=== PATIENT | female | born 1990 | race Caucasian/White ===

== ENCOUNTER → 2023-03-29 | Outpatient (CLI) | payer MEDICAID, SELFPAY ==
[2023-03-29 12:16] LABS: Hematocrit 44.1 % (37-47); Mean Corp Hgb Conc 31.7 g/dL (32-36); Mean Corpuscular Hgb 28.2 pg (27.0-32.0); Mean Corpuscular Volume 88.9 fL (81-99); Mean Platelet Vol. 11.5 fl (6.2-12.0); Platelet Count 234 K/mm3 (150-450); RBC Distribution Width CV 11.6 % (11.6-14.6); RBC Distribution Width SD 36.8 fl (35.1-43.9); Red Blood Count 4.96 M/mm3 (4.2-5.4); White Blood Count 6.6 K/mm3 (4.4-11.0)
[2023-03-29 12:55] LABS: AST(SGOT) 19 U/L (15-37); Alanine Aminotransfer ALT/SGPT 24 U/L (13-56); Albumin, Serum 4.2 g/dL (3.2-5.0); Alkaline Phosphatase 44 U/L (45-117); Anion Gap 7 (5-15); BUN 12 mg/dL (7-18); BUN/Creat Ratio 21.2 RATIO (10-20); Calcium,Total 9.3 mg/dL (8.5-10.1); Chloride 105 mmol/L (98-107); Creatinine, Serum 0.57 mg/dL (0.55-1.02); EST Glomerular Filtration Rate 131 mL/min (>60); Est Glom Filt Rate - Afr Amer 158 mL/min (>60); Globulin 4.2 g/dL (2.2-4.2); Glucose 91 mg/dL (74-106); Potassium 3.9 mmol/L (3.5-5.1); Protein, Total 8.4 g/dL (6.4-8.2); Sodium Level 138 mmol/L (136-145)
[2023-03-30 14:08] LABS: Vitamin D 1,25-Dihydroxy 56.2 pg/mL (24.8-81.5)
[2023-03-31 15:08] LABS: Trileptal-Oxcarbazepine 23 ug/mL (10-35)
== END | disposition home or self-care (01) ==
LOC: MTLAB 10:14
PROVIDERS: PCP Family Medicine; Referring Provider Psychiatry & Neurology Neurology; Visit Provider Psychiatry & Neurology Neurology
DX: N20.0 Calculus of kidney (principal)
CPT/HCPCS: 36415; 80053; 82542; 82652; 85027

== ENCOUNTER → 2023-04-16 | Outpatient (CLI) | payer MEDICAID, SELFPAY ==
--- NOTE | 2023-04-16 13:41 | ECHOD_ITS ---
Reason For Study: PRESYNCOPE Procedure This was a 2D Doppler, Color Flow transthoracic echocardiogram. Technically difficult study due to patients severe congitive disability and unable to cooperate long enough for a full study. Exam performed in department. Left Ventricle Normal size and thickness. The left ventricular ejection fraction is 60 %. Right Ventricle Normal right ventricle. Atria The left and right atria are normal. Mitral Valve Trivial mitral valve insufficiency. Tricuspid Valve Normal tricuspid valve. Aortic Valve The aortic valve is not well visualized in the short axis view. Pulmonic Valve The pulmonic valve is not well visualized. Great Vessels The aortic root is not well visualized. Pericardium/Pleural Trivial pericardial effusion. MMode/2D Measurements & Calculations LVIDd: 3.7 cm IVSd: 0.52 cm LAV(MOD-sp4): 17.5 ml LVIDs: 2.7 cm LVPWd: 0.72 cm FS: 26.8 % LA A4 area: 8.7 cm2 LA dimension(2D): 2.1 cm RA A4 area: 7.7 cm2 TAPSE: 1.7 cm Doppler Measurements & Calculations MV E max vic: 81.4 cm/sec Lat Peak E' Vic: 9.6 cm/sec Med Peak E' Vic: 12.4 cm/sec MV A max vic: 48.1 cm/sec E/E' lat: 8.5 E/E' med: 6.6 MV E/A: 1.7 MV V2 max: 97.4 cm/sec MV P1/2t max vic: 84.3 cm/sec Ao V2 max: 103.0 cm/sec MV max P.8 mmHg MV P1/2t: 60.0 msec Ao max P.2 mmHg MV V2 mean: 66.8 cm/sec Ao V2 mean: 68.9 cm/sec MV mean P.0 mmHg MV dec slope: 411.4 cm/sec2 Ao mean P.2 mmHg MV V2 VTI: 28.8 cm MVA(P1/2t): 3.7 cm2 Ao V2 VTI: 19.6 cm AV (velocity ratio): 1.2 LV V1 max: 109.3 cm/sec LV V1 max P.8 mmHg LV V1 mean P.5 mmHg LV V1 mean: 73.6 cm/sec LV V1 VTI: 22.8 cm ECHO/Echo Complete Interpretation Summary Technically difficult study. The left ventricular ejection fraction is 60 %. Trivial pericardial effusion. Ordering Physician: Brodie Culver Referring Physician: Brodie Culver Performed By: Magnolia Reyes RCS
== END | disposition home or self-care (01) ==
LOC: CVS 13:40
PROVIDERS: PCP Family Medicine; Referring Provider Psychiatry & Neurology Neurology; Visit Provider Psychiatry & Neurology Neurology
DX: R55 Syncope and collapse (principal); R01.1 Cardiac murmur, unspecified
CPT/HCPCS: 93306

== ENCOUNTER → 2023-10-29 | Outpatient (CLI) | payer MEDICAID, SELFPAY ==
[2023-10-29 09:40] LABS: Hematocrit 43.1 % (37-47); Hemoglobin 14.1 g/dL (12.0-15.0); Mean Corp Hgb Conc 32.7 g/dL (32-36); Mean Corpuscular Hgb 28.4 pg (27.0-32.0); Mean Corpuscular Volume 86.9 fL (81-99); Mean Platelet Vol. 10.7 fl (6.2-12.0); Platelet Count 236 K/mm3 (150-450); RBC Distribution Width CV 11.7 % (11.6-14.6); Red Blood Count 4.96 M/mm3 (4.2-5.4); White Blood Count 9.9 K/mm3 (4.4-11.0)
[2023-10-29 13:05] LABS: ALB/GLOB Ratio 1.1 RATIO (0.9-2.4); AST(SGOT) 21 U/L (15-37); Alanine Aminotransfer ALT/SGPT 18 U/L (13-56); Albumin, Serum 4.2 g/dL (3.2-5.0); Alkaline Phosphatase 44 U/L (45-117); Anion Gap 7 (5-15); BUN 8 mg/dL (7-18); BUN/Creat Ratio 12.3 RATIO (10-20); Calcium,Total 9.5 mg/dL (8.5-10.1); Chloride 105 mmol/L (98-107); Creatinine, Serum 0.65 mg/dL (0.55-1.02); EST Glomerular Filtration Rate 111 mL/min (>60); Est Glom Filt Rate - Afr Amer 134 mL/min (>60); Globulin 3.7 g/dL (2.2-4.2); Glucose 101 mg/dL (74-106); Protein, Total 7.9 g/dL (6.4-8.2); Sodium Level 138 mmol/L (136-145)
[2023-11-03 01:07] LABS: Trileptal-Oxcarbazepine 17 ug/mL (10-35)
== END | disposition home or self-care (01) ==
LOC: PSN 09:02
PROVIDERS: Referring Provider Psychiatry & Neurology Neurology; Visit Provider Psychiatry & Neurology Neurology
DX: R55 Syncope and collapse (principal); G40.909 Epilepsy, unspecified, not intractable, without status epilepticus
CPT/HCPCS: 36415; 80053; 82542; 85027; 93005

== ENCOUNTER → 2025-02-05 | Outpatient (CLI) | payer MEDICAID, SELFPAY ==
[2025-02-05 17:50] LABS: Hematocrit 41.2 % (37-47); Hemoglobin 13.5 g/dL (12.0-15.0); Immature Granulocytes Count 0.010 X10^3/uL (0.0-0.0); Mean Corp Hgb Conc 32.8 g/dL (32-36); Mean Corpuscular Volume 88.0 fL (81-99); Mean Platelet Vol. 12.7 fl (6.2-12.0); NRBC Flagged by Analyzer 0 % (0-5); Platelet Count 169 K/mm3 (150-450); RBC Distribution Width CV 11.5 % (11.6-14.6); RBC Distribution Width SD 36.8 fl (35.1-43.9); Red Blood Count 4.68 M/mm3 (4.2-5.4); White Blood Count 7.6 K/mm3 (4.4-11.0)
[2025-02-05 18:23] LABS: AST(SGOT) 24 U/L (<=31); Alanine Aminotransfer ALT/SGPT 14 U/L (<=34); Albumin, Serum 4.5 g/dL (3.5-5.0); Alkaline Phosphatase 38 U/L (35-104); Anion Gap 12 (5-15); BUN 16 mg/dL (4-19); BUN/Creat Ratio 26.3 RATIO (10-20); Calcium,Total 9.4 mg/dL (7.6-11.0); Carbon Dioxide 22.4 mmol/L (21.0-32.0); Chloride 104 mmol/L (98-108); Globulin 3.0 g/dL (2.2-4.2); Glucose 101 mg/dL (70-99); Potassium 4.7 mmol/L (3.3-5.1)
--- OUTSIDE RECORDS SUMMARY | 2025-02-05 23:22 | XMS RPT_ITS | CCD ---
Author Organization [facility] Care Team Providers Care Tour Consultant Name Role Phone Ge Mathewmut J Unavailable Unavailab le BaehrenCamden F Unavailable Unavailable Baehren, Camden F Unavailable Unavailable Jungschaffer, Ta J Unavailable Unavailab le Ivanauskas, Saulius Unavailable Unavailable Ivanauskas, Saulius Unavailable Unavailable Jungschaffer, Ta J Unavailable Unavailab le Ivanauskas, Saulius Unavailable Unavailable Ivanauskas, Saulius Unavailable Unavailable Jungschaffer, Ta J Unavailable Unavailab le Ivanauskas, Saulius Unavailable Unavailable Ivanauskas, Saulius Unavailable Unavailable No, Physician Unavailable Unavailable Brodie Ralph Unavailable Unavailable Brodie Ralph Unavailable Unavailable BadBrodie solorio Unavailable Unavailable Baddoarabella, Brodie Falcon Unavailable Unavailable Abiola, Brodie J Unavailable Unavailable Abiola, Brodie J Unavailable Unavailable Olya Johnson Primary Care Provider [phone] No, Physician Primary Care Provider UnavailBRODIE Bravo Admitting Unavaila ble NO, PHYSICIAN Primary Care Unavailable Olya Johnson MD Primary Care Provider Olya Johnson MD Primary Care Provider [phone] OLYA JOHNSON Referring Unavailable OLYA JOHNSON Primary Care Unavailable OLYA JOHNSON Referring Unavailable OLYA JOHNSON Primary Care Unavailable OLYA JOHNSON Referring Unavailable ALEX OLYA K Primary Care Unavailable OLYA JOHNSON Primary Care Unavailable SHAHAB ROMERO Referring Unavailable Olya Johnson MD Primary Care Provider [phone] Dr. Brodie Ralph Attending Provider Dr. Olya Johnson Primary Care Provider Dr. Olya Johnson Referring Provider Dr. Matthias Gil Attending Provider Brodie Ralph Attending Unavailable Olya Johnson Referring Unavailable Olya Johnson Primary Care Unavailable Olya Johnson Primary Care Unavailable Brodie Ralph Attending Unavailable Olya Johnson Referring Unavailable Dr. Olya Johnson Primary Care Provider Dr. Brodie Ralph MD Attending Provider [phone] Dr. Brodie Ralph MD Referring Provider Dr. Olya Johnson Referring Provider Allergies Allergy Classification Reported Allergen(s) Allergy Type Date of Onset Reaction(s) Facility (12 sources) PHENobarbital; Translations: [PHENobarbital] Drug Allergy 07-06-2011 [facility] Repository (3 sources) Haloperidol Drug Allergy 04-01-2023 Other [facility] (1 source) Haloperidol Drug Allergy 04-17-2024 [facility] Repository Medications Current Medications Medication Drug Class(es) Dates Sig (Normalized) Sig (Original) ergocalciferol 1.25 mg oral capsule (6 sources) Provitamin D2 Compound Start: 05-13-2019 take 1 capsule by mouth every week vitamin D (ERGOCALCIFEROL) 1.25 MG (32295 UT) CAPS capsule TAKE 1 CAPSULE BY MOUTH weekly 0 05/13/2019 Active Incontinence Supply Disposable MISC (6 sources) Start: 02-11-2022 Incontinence Supply Disposable MISC Indications: Urinary incontinence, unspecified type 1 each by Does not apply route 6 times daily by Does not apply route. 200 each 11 02/11/2022 Active Start: 05-04-2013 Incontinence S upply Disposable MISC by Does not apply route. 200 each 05/04/2013 Active levoFLOXacin 750 mg oral tablet (1 source) Quinolone Antimicrobial Start: 07-18-2019 End: 07-23-2019 take 1 tablet by mouth once daily levofloxacin (LEVAQUIN) 750 MG tablet Take 1 tablet by mouth daily for 5 days 5 tablet 0 07/18/2019 07/23/2019 Active loratadine 10 mg oral tablet (6 sources) Start: 11-01-2012 take 1 tablet by mouth once daily loratadine (CLARITIN) 10 MG tablet Indications: Allergic rhinoconjunctivitis Take 1 tablet by mouth daily. 30 tablet 2 11/01/2012 Active ondansetron 4 mg oral tablet (4 sources) Serotonin-3 Receptor Antagonist Start: 06-24-2022 ondansetron (ZOFRAN) 4 MG tablet Indications: Nausea Take 1 tablet by mouth every 6-8 hours as needed for Nausea or Vomiting 30 tablet 0 06/24/2022 Active OXcarbazepine 300 mg oral tablet (20 sources) Anti-epileptic Agent Start: 06-25-2022 End: 02-05-2025 take 1 tablet by mouth once daily in the evening Oxcarbazepine 300 mg tablet Active 300 mg PO EVERY EVENING 30 February 05, 2025 2:47pm Start: 05-13-2019 End: 02-05-2025 take 1 tablet by mouth twice daily Oxcarbazepine 600 mg tablet Active 600 mg PO TWICE A DAY 60 February 05, 2025 2:47pm traZODone hydrochloride 50 mg oral tablet (6 sources) Serotonin Reuptake Inhibitor Start: 08-16-2023 End: 02-05-2025 Trazodone 50 mg tablet Active 25 mg PO AT BEDTIME as needed for insomnia 15 February 05, 2025 2:47pm Start: 04-01-2023 End: 08-16-2023 take 1 tablet by mouth at bedtime Trazodone 50 mg tablet Discontinued 50 mg PO AT BEDTIME 30 April 01, 2023 12:00am August 16, 2023 4:50pm Problems Active Problems Problem Classification Problem Date Documented Da te Episodic/Chronic Developmental disorders (14 sources) Profound intellectual disability; Translations: [Profound intellectual disabilities] Onset: 07-03-2011 07-03-2011 Chronic Epilepsy; convulsions (4 sources) Epilepsy; Translations: [Epilepsy, unspecified, not intractable, without status epilepticus] 06-25-2022 Chronic Epilepsy; convulsions (6 sources) Seizure; Translations: [Unspecified convulsions] 07-06-2011 Episodic Heart valve disorders (4 sources) Heart murmur; Translations: [Cardiac murmur, unspecified] 04-01-2023 Episodic Other acquired deformities (1 source) Acquired deformity of right foot; Translations: [Unspecified acquired deformity of right lower leg] Episodic Other acquired deformities (3 sources) Unspecified acquired deformity of right lower leg; Translations: [Unspecified acquired deformity of right lower leg] Onset: 09-22-2022 Episodic Other congenital anomalies (1 source) Other specified congenital deformities of hip; Translations: [Other specified congenital deformities of hip] Onset: 11-02-2022 Chronic Other injuries and conditions due to external causes (1 source) Contusion; Translations: [Other injury of unspecified body region, initial encounter] Episodic Other non-traumatic joint disorders (1 source) Pain in right hip joint; Translations: [Pain in right hip] Episodic Other non-traumatic joint disorders (3 sources) Pain in right hip; Translations: [Pain in right hip] Onset: 09-22-2022 Episodic Other nutritional; endocrine; and metabolic disorders (3 sources) History of nutritional deficiency; Translations: [Personal history of other endocrine, nutritional and metabolic disease] 06-25-2022 Episodic Other nutritional; endocrine; and metabolic disorders (1 source) Personal history of other endocrine, nutritional and metabolic disease; Translations: [Personal history of nutritional deficiency] 04-01-2023 Episodic Paralysis (4 sources) Cerebral palsy; Translations: [Cerebral palsy, unspecified] 06-25-2022 Chronic Residual codes; unclassified (2 sources) Insomnia; Translations: [Insomnia, unspecified] 04-01-2023 Episodic Residual codes; unclassified (1 source) Insomnia, unspecified; Translations: [Insomnia, unspecified] 04-01-2023 Episodic Syncope (5 sources) Near syncope; Translations: [Syncope and collapse] 04-01-2023 Episodic Unclassified (2 sources) Intellectual disability; Translations: [Intellectual disability] 11-28-2018 Past or Other Problems Problem Classification Problem Date Documented Da te Episodic/Chronic Allergic reactions (6 sources) Eczema; Translations: [Dermatitis, unspecified] Onset: 04-09-2015 04-09-2015 Episodic Influenza (1 source) Influenza due to Influenza B virus Episodic Results Test Name Value Interpretation Reference Range Facility Neurology Visit Reporton Neurology Visit Report [facility] [address] [place] [address], [address] [place] [address] OFFICE VISIT Date of Service: 04/17/24 MR#: [id number] Acct: [id number] Name: RENEE POTTS Rep #: [id number] : 1990 Provider: Dr. Brodie castellanos MD Age/Sex: 33/F [place] [facility] [place]: Signed [facility] Chief Complaint: Details: Interim History: Renee returns for follow-up visit. She is accompanied by her mother. She has a history of mental retardation, cerebral palsy and epilepsy. She was born full term however had distress around the time of her delivery and required delivery by section. Her mother reported that despite this, her scores were high. She was noted to have developmental motor delay beginning at the age of three months. In infancy and childhood, she had multiple generalized febrile seizures that were associated with recurrent ear infections. Phenobarbital was not well tolerated. Phenytoin was of benefit but was later discontinued. Carbamazepine was of benefit. Around 2003, she apparently had a supratherapeutic carbamazepine level. Her seizure frequency at that time had apparently decreased ranging from once or twice per year to once every two years and decision was made to discontinue carbamazepine. She began to have an increase in her seizure frequency around 2014. She had five seizures between December 2016 in August 2017. She was started on oxcarbazepine in August 2017 and is tolerating this well. Her seizures are characterized as generalized clonic seizures that do not appear to be of focal onset; she has postictal confusion and lethargy. She also has had occasional complex partial seizures manifesting with staring spells. She had a complex partial seizure in August 2019 otherwise has been seizure free since August 2017. Flashing lights are a trigger for her seizures. She is nonverbal. She has marked difficulty following commands. She needs assistance with essentially all of her activities of daily living. At her baseline, she has bowel and bladder incontinence and unsteadiness of gait. In March 2023, she had an episode of diaphoresis and pale appearance. This occurred while standing and she collapsed to the ground but did not lose consciousness. The episode resolved within 30 seconds. This most likely was a presyncopal episode. She has had no further syncopal episodes. She has occasional insomnia. Melatonin was not of benefit. She takes takes trazodone 50 mg 1/2 tablet nightly as needed (trazodone 50 mg caused daytime sedation). Physical Exam: Neuro: the patient is awake; she is markedly bradyphrenic; she produces inarticulate vocalizations Heart: Regular rate and rhythm Supplemental Info Head CT (09/02/17): normal. EEG (09/09/17): abnormal due to presence of 4-5 Hz Dylan and wave discharges seen independently on both temporal areas, sometimes diffusely, which is suggestive of a cortical particular or generalized type of discharge consistent with a primary generalized seizure. There is also slowing of the background, suggesting a mild degree of generalized nonspecific neurophysiological disturbance. No clear ictal activity was seen during the recording. CBC, CMP, TSH, B12, folate, vitamin D level (09/09/17): vitamin D 13 (low), B12 1107, folate >20. Sodium (03/07/18): normal. Oxcarbazepine level (03/07/18): 11 (in therapeutic range). Oxcarbazepine level (09/07/19): 21 (in therapeutic range). CBC, CMP, vitamin D level (09/07/19): glucose 48. CBC, CMP, vitamin D (05/07/21): vitamin D 118 (elevated), glucose 103 CBC, CMP, vitamin D (03/29/2023): BUN/creatinine ratio 21.2 (high) Oxcarbazepine (03/29/2023): 23 (in therapeutic range) Cardiac echo (04/16/2023): Technically difficult study. The left ventricular ejection fraction is 60 %. Trivial pericardial effusion. CBC, CMP (10/29/2023): Unremarkable. Oxcarbazepine level (10/29/2023): 17 (in therapeutic range). EKG (10/29/2023): Sinus rhythm with short PA. Nonspecific T wave abnormality. Abnormal EKG. Assessment and Plan Assessment and Plan (1) Epilepsy: Status: Chronic Qualifiers: Epilepsy type: other Intractability: not intractable Status epilepticus: without status epilepticus Qualified Code(s): G40.802 - Other epilepsy, not intractable, without status epilepticus (2) Insomnia: Status: Acute Qualifiers: Insomnia type: unspecified Qualified Code(s): G47.00 - Insomnia, unspecified Orders: Orders Trileptal-Oxcarbazepine 11/20/24 G40.802 - Other epilepsy, not intractable, without status epilepticus CBC W/Diff, Automated 11/20/24 G40.802 - Other epilepsy, not intractable, without status epilepticus Comprehensive Metabolic Profil 11/20/24 G40.802 - Other epilepsy, not intractable, without status epilepticus Medications: Refilled oxcarbazepine 600 mg PO BID 60 tabs 10RF oxcarbazepine 300 mg PO QPM 30 tabs 10RF (more content not included)... Normal [facility] Basophil percentageOrdered B y: Brodie Ralph on 03-29-2023 Bilirubin [Mass/Vol] 0.20 mg/dL 0.20-1.00 [facility] Comment on above: For patients on eltr ombopag therapy, use of Dimension [place] TBIL is not recommended. Chloride [Moles/Vol] 105 mmol/L 98-107 [facility] Glucose [Mass/Vol] 91 mg/dL 74-106 [facility] Potassium [Moles/Vol] 3.9 mmol/L 3.5-5.1 [facility] Protein [Mass/Vol] 8.4 g/dL 6.4-8.2 [facility] Sodium [Moles/Vol] 138 mmol/L 136-145 [facility] WBC (Bld) [#/Vol] 6.6 10*3/uL 4.4-11.0 [facility] Blood erythrocytes count (nu mber/volume)Ordered By: Brodie Ralph on 03-29-2023 RBC (Bld) [#/Vol] 4.96 10*6/uL 4.2-5.4 [facility] Blood hemoglobin measurement (mass/volume)Ordered By: Brodie Ralph on 03-29-2023 Hemoglobin (Bld) [Mass/Vol] 14.0 g/dL 12.0-15.0 [facility] Blood platelet mean volumeOr dered By: Brodie Ralph on 03-29-2023 Platelet mean volume (Bld) [Entitic vol] 11.5 fL 6.2-12.0 [facility] Determination of erythrocyte mean corpuscular volume (MCV)Ordered By: Brodie Ralph on 03-29-2023 MCV (RBC) [Entitic vol] 88.9 fL 81-99 [facility] Hematocrit Auto (Bld) [Volum e fraction]Ordered By: Brodie Ralph on 03-29-2023 Hematocrit (Bld) [Volume fraction] 44.1 % 37-47 [facility] Laboratory - Chemistry and C hemistry - challengeOrdered By: Brodie Ralph on 03-29-2023 ALP [Catalytic activity/Vol] 44 U/L 45-117 [facility] ALT [Catalytic activity/Vol] 24 U/L 13-56 [facility] CO2 [Moles/Vol] 26.0 mmol/L 21.0-32.0 [facility] Globulin (S) [Mass/Vol] 4.2 g/dL 2.2-4.2 [facility] Urea nitrogen/Creatinine [Mass ratio] 21.2 mg/mg 10-20 [facility] Laboratory - Hematology and Cell countsOrdered By: Brodie Ralph on 03-29-2023 Erythrocyte distribution width (RBC) [Entitic vol] 36.8 fL 35.1-43.9 [facility] Erythrocyte distribution width (RBC) [Ratio] 11.6 % 11.6-14.6 [facility] MCH (RBC) [Entitic mass] 28.2 pg 27.0-32.0 [facility] MCHC Auto (RBC) [Mass/Vol]Or dered By: Brodie Ralph on 03-29-2023 MCHC (RBC) [Mass/Vol] 31.7 g/dL 32-36 [facility] No Panel InformationOrdered By: Brodie Ralph on 03-29-2023 Estimated GFR (MDRD) Amer 158 mL/min >60 [facility] Comment on above: GFR Calc Estimated GFR (MDRD) Non-Af Amer 131 mL/min >60 [facility] Comment on above: Non- GFR Calc Platelets bldOrdered By: Adam Ralph on 03-29-2023 Platelets (Bld) [#/Vol] 234 10*3/uL 150-450 [facility] Serum or plasma albumin sana urement (mass/volume)Ordered By: Brodei Ralph on 03-29-2023 Albumin [Mass/Vol] 4.2 g/dL 3.2-5.0 [facility] Serum or plasma albumin/glob ulin mass ratioOrdered By: Brodie Ralph on 03-29-2023 Albumin/Globulin [Mass ratio] 1.0 {ratio} 0.9-2.4 [facility] Serum or plasma calcitriol m easurement (mass/volume)Ordered By: Brodie Ralph on 03-29-2023 1,25-dihydroxyvitami n D3 [Mass/Vol] 56.2 pg/mL 24.8-81.5 [facility] Comment on above: Performed at: [facility] [address] [id number] Director: Dalia Chandra MD, Phone: [phone] Serum or plasma calcium sana urement (mass/volume)Ordered By: Brodie Ralph on 03-29-2023 Calcium [Mass/Vol] 9.3 mg/dL 8.5-10.1 [facility] Serum or plasma creatinine m easurement (mass/volume)Ordered By: Brodie Ralph on 03-29-2023 Creatinine [Mass/Vol] 0.57 mg/dL 0.55-1.02 [facility] Comment on above: The validity of the calculated GFR & GFRAA in patients over 70 years has not been determined. Clinical correlation is essential. Serum or plasma oxcarbazepin e measurement (mass/volume)Ordered By: Brodie Ralph on 03-29-2023 OXcarbazepine [Mass/Vol] 23 ug/mL 10-35 [facility] Comment on above: This test was develo ped and its performance characteristicsdetermined by [employer]. It has not been cleared orapproved by the Food and Drug Administration. Detection Limit = 1Performed at: [employer] [facility] [address] [id number] Director: Dalia Chandra MD, Phone: [phone] Serum or plasma urea nitroge n measurement (mass/volume)Ordered By: Brodie Ralph on 03-29-2023 Urea nitrogen [Mass/Vol] 12 mg/dL 7-18 [facility] Thin prep Papanicolaou smear with manual screeningOrdered By: Brodie Ralph on 03-29-2023 Thin prep Papanicolaou smear with manual screening 19 U/L 15-37 [facility] Thin prep Papanicolaou smear with manual screening 7 5-15 [facility] CBC panel Auto (Bld)on 02-26 Erythrocyte distribution width (RBC) [Ratio] 11.5 % Low 11.7 - 14.4 % [facility] Hematocrit (Bld) [Volume fraction] 39.7 % 37.0 - 47.0 % [facility] Hemoglobin (Bld) [Mass/Vol] 13.3 g/dL 11.2 - 15.7 g/dL [facility] Interpretation and review of laboratory results Abnormal [facility] MCH (RBC) [Entitic mass] 28.8 pg 25.6 - 32.2 pg [facility] MCHC (RBC) [Mass/Vol] 33.5 % 32.2 - 35.5 % [facility] MCV (RBC) [Entitic vol] 85.9 fL 79.4 - 94.8 fL [facility] Platelets (Bld) [#/Vol] 224 10*3/uL 182 - 369 K/uL [facility] RBC (Bld) [#/Vol] 4.62 10*6/uL [facility] WBC (Bld) [#/Vol] 7.2 10*3/uL 4.0 - 10.0 K/uL [facility] No Panel Informationon 09-22 Radiology Study observation (narrative) [facility] Work Phone: XR FOOT RIGHT (MIN 3 VIEWS)o n 09-22-2022 XR FOOT RIGHT (MIN 3 VIEWS) EXAMINATION: THREE XRAY VIEWS OF THE RIGHT FOOT 09/22/2022 8:59 am COMPARISON: None. HISTORY: ORDERING SYSTEM PROVIDED HISTORY: Acquired foot deformity, right TECHNOLOGIST PROVIDED HISTORY: Is the patient ?->No What reading provider will be dictating this exam?->CRC FINDINGS: There is well-demarcated erosion of the tip of the distal phalanx of the great toe that is nonspecific. No acute fracture or dislocation. Question mild soft tissue edema of the great toe. IMPRESSION: Nonspecific well-demarcated erosion of the tip of the distal phalanx of the great toe. This may be congenital, represent sequela of prior trauma or healed osteomyelitis, or acute osteomyelitis in the appropriate clinical setting. Interpreted by: Deyvi Weeks DO Signed by: Deyvi Weeks DO 09/22/22 Final result Normal [facility] Nonspecific well-dem arcated erosion of the tip of the distal phalanx of the great toe. This may be congenital, represent sequela of prior trauma or healed osteomyelitis, or acute osteomyelitis in the appropriate clinical setting. [facility] RADIOLOGY EXAMINATION: THREE XRAY VIEWS OF THE RIGHT FOOT 09/22/2022 8:59 am COMPARISON: None. HISTORY: ORDERING SYSTEM PROVIDED HISTORY: Acquired foot deformity, right TECHNOLOGIST PROVIDED HISTORY: Is the patient ?->No What reading provider will be dictating this exam?->CRC FINDINGS: There is well-demarcated erosion of the tip of the distal phalanx of the great toe that is nonspecific. No acute fracture or dislocation. Question mild soft tissue edema of the great toe. [facility] RADIOLOG[facility] Deyvi Weeks DO - 09/22/2022 EXAMINATION: THREE XRAY VIEWS OF THE RIGHT FOOT 09/22/2022 8:59 am COMPARISON: None. HISTORY: ORDERING SYSTEM PROVIDED HISTORY: Acquired foot deformity, right TECHNOLOGIST PROVIDED HISTORY: Is the patient ?->No What reading provider will be dictating this exam?->CRC FINDINGS: There is well-demarcated erosion of the tip of the distal phalanx of the great toe that is nonspecific. No acute fracture or dislocation. Question mild soft tissue edema of the great toe. IMPRESSION: Nonspecific well-demarcated erosion of the tip of the distal phalanx of the great toe. This may be congenital, represent sequela of prior trauma or healed osteomyelitis, or acute osteomyelitis in the appropriate clinical setting. [employer] Phone: XR FOOT RIGHT (MIN 3 VIEWS)O rdered By: Deyvi Weeks on 09-22-2022 [facility] [employer] [facility] Phone: XR HIP RIGHT (2-3 VIEWS)on 0 09-22-2022 XR HIP RIGHT (2-3 VIEWS) EXAMINATION: TWO XRAY VIEWS OF THE RIGHT HIP 09/22/2022 8:59 am COMPARISON: None. HISTORY: ORDERING SYSTEM PROVIDED HISTORY: Right hip pain TECHNOLOGIST PROVIDED HISTORY: Is the patient ?->No What reading provider will be dictating this exam?->CRC FINDINGS: There is upsloping of both the right and left acetabulum, greater on the right. There is also flattening of both the superomedial aspect of the right and left femoral heads, right greater than left. No definitive findings of avascular necrosis by radiography. No acute fracture of the pelvis or visualized portion of either femur. Soft tissues appear within normal limits. 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 Collapse of the superomedial aspect of both the right and left femoral head, right greater than left, likely sequela of developmental hip dysplasia however this would be better evaluated with MRI of the hip without contrast. Interpreted by: Deyvi Weeks DO Signed by: Deyvi Weeks DO 09/22/22 Final result Normal [facility] Findings of both hip s suggesting developmental hip dysplasia, right greater than left. Collapse of the superomedial aspect of both the right and left femoral head, right greater than left, likely sequela of developmental hip dysplasia however this would be better evaluated with MRI of the hip without contrast. [facility] RADIOLOGY EXAMINATION: TWO XRAY VIEWS OF THE RIGHT HIP 09/22/2022 8:59 am COMPARISON: None. HISTORY: ORDERING SYSTEM PROVIDED HISTORY: Right hip pain TECHNOLOGIST PROVIDED HISTORY: Is the patient ?->No What reading provider will be dictating this exam?->CRC FINDINGS: There is upsloping of both the right and left acetabulum, greater on the right. There is also flattening of both the superomedial aspect of the right and left femoral heads, right greater than left. No definitive findings of avascular necrosis by radiography. No acute fracture of the pelvis or visualized portion of either femur. Soft tissues appear within normal limits. [facility] RADIOLOG[facility] Deyvi Weeks DO - 09/22/2022 EXAMINATION: TWO XRAY VIEWS OF THE RIGHT HIP 09/22/2022 8:59 am COMPARISON: None. HISTORY: ORDERING SYSTEM PROVIDED HISTORY: Right hip pain TECHNOLOGIST PROVIDED HISTORY: Is the patient ?->No What reading provider will be dictating this exam?->CRC FINDINGS: There is upsloping of both the right and left acetabulum, greater on the right. There is also flattening of both the superomedial aspect of the right and left femoral heads, right greater than left. No definitive findings of avascular necrosis by radiography. No acute fracture of the pelvis or visualized portion of either femur. Soft tissues appear within normal limits. 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 Collapse of the superomedial aspect of both the right and left femoral head, right greater than left, likely sequela of developmental hip dysplasia however this would be better evaluated with MRI of the hip without contrast. [employer] Phone: XR HIP RIGHT (2-3 VIEWS)Orde red By: Deyvi Weeks on 09-22-2022 [facility] Club W Phone: COVID-19, NAAon 03-28-2020 COVID-19, AYLIN Not Detected Normal Not Detect [facility] Comment on above: Result Comment: This nucleic acid amplification test was developed and its performance characteristics determined by Mr. Youth. Nucleic acid amplification tests include PCR and TMA. This test has not been FDA cleared or approved. This test has been authorized by FDA under an Emergency Use Authorization (EUA). This test is only authorized for the duration of time the declaration that circumstances exist justifying the authorization of the emergency use of in vitro diagnostic tests for detection of SARS-CoV-2 virus and/or diagnosis of COVID-19 infection under section 564(b)(1) of the Act, 21 U.S.C. 360bbb-3(b) (1), unless the authorization is terminated or revoked sooner. When diagnostic testing is negative, the possibility of a false negative result should be considered in the context of a patient's recent exposures and the presence of clinical signs and symptoms consistent with COVID-19. An individual without symptoms of COVID-19 and who is not shedding SARS-CoV-2 virus would expect to have a negative (not detected) result in this assay. Performed at: [facility] [address] [facility], [place] [id number] Soubrette: Cynthia Lema MD, Phone: [phone] Performed By: #### I RCOV #### [facility] [address] [place] [address] COVID-19, NAAon 03-27-2020 Source Swab Anterior nares Normal [facility] Comment on above: Performed By: #### I RCOV #### [facility] [address] [place] [address] XR CHEST STANDARD (2 VW)Orde red By: Olya Johnson on 07-18-2019 FOCAL LEFT LOWER LOB E INFILTRATE, CONSISTENT WITH PNEUMONIA. Results were called by me to Mónica at Dr. Johnson's office at 07/18/2019 12:06 PM. [employer] Phone: EXAMINATION: XR CHES T (2 VW) CLINICAL HISTORY: J10.1 Influenza B ICD10 COMPARISONS: None available. FINDINGS: There is focal left lower lobe infiltrate, overlying the cardiac silhouette on PA projection. Cardiac size and pulmonary vascularity are normal. There are no pleural effusions. There is no pneumothorax. There is no evidence of adenopathy. The bones are unremarkable. [employer] Phone: Biju, Chpo Incoming R adiant Results From [employer] - 07/18/2019 12:11 PM EST EXAMINATION: XR CHEST (2 VW) CLINICAL HISTORY: J10.1 Influenza B ICD10 COMPARISONS: None available. FINDINGS: There is focal left lower lobe infiltrate, overlying the cardiac silhouette on PA projection. Cardiac size and pulmonary vascularity are normal. There are no pleural effusions. There is no pneumothorax. There is no evidence of adenopathy. The bones are unremarkable. IMPRESSION: FOCAL LEFT LOWER LOBE INFILTRATE, CONSISTENT WITH PNEUMONIA. Results were called by me to adry Sales Dr.'s office at 07/18/2019 12:06 PM. [employer] Phone: Provider Note - ED v2on 06-21 Provider Note - ED v2 Provider Note - ED v2: Chart Review: ED NOTES ED NOTES: The patient has cerebral palsy and is nonverbal. Mother provides history. She states that over the past 3 or 4 days the patient has had nasal congestion, cough, fever, malaise. There has been no dyspnea or vomiting. She was exposed to influenza at school HISTORY OF PRESENTING ILLNESS RENEE is a 28 year old Female and was seen by me at 04-Jul-2019 19:25 for a chief complaint of cold symptoms . Triage Information: Most recent Vital Sign Value Date Temp (F): 100.2 07-04-2019 19:04 Temp (C): 37.9 07-04-2019 19:04 Heart Rate (beats/min): 109 07-04-2019 19:04 Respirations (breaths/min): 22 07-04-2019 19:04 SpO2 (%): 94 07-04-2019 19:04 PAST MEDICAL HISTORY ATTESTATION: I have reviewed and confirmed nurse's/medic's notes for patient's medications, allergies, medical history, and surgical history ALLERGIES/INTOLERANCES: Allergy Allergen: phenobarbital Type: Drug Reaction: Hives/Urticaria HEALTH HISTORY: No documented data. OUTPATIENT MEDICATIONS: Home Medications Review Status for Reconciliation: N/A Med Status: N/A No documented data. SIGNIFICANT EVENTS: Past Medical History Description:seizure Description:Cerebral Palsy MACHINE FIXER: Is : no(1) Is : no(1) REVIEW OF SYSTEMS ROS not obtained due to patient being unable to respond. PHYSICAL EXAM CONSTITUTIONAL: Well appearing, mild distress. HENMT: TMs clear. She is not cooperative for examination of her mouth and throat RESPIRATORY: Breath sounds clear and equal bilaterally. GASTROINTESTINAL: Abdomen soft, non-distended, no rebound, no guarding. SKIN: Skin normal color for race, warm, dry and intact. No evidence of trauma. MEDICAL DECISION MAKING/ED COURSE MDM/ED COURSE: Clinically she has influenza. She is outside the window for treatment with Tamiflu CLINICAL IMPRESSION Diagnosis/Annotation: ED Dx Name:Influenza-like illness Code:R69 Dispostion: discharged Type: home ATTESTATION CRITICAL CARE TIME Is this a critically ill patient: no Electronic Signatures: Camden Lew) (Signed 04-Jul-2019 19:36) Authored: Provider Note - ED v2 Last Updated: 04-Jul-2019 19:36 by Camden Lew) References: 1. Data Referenced From Triage - ED 04-Jul-2019 19:04 Normal [facility] Risk Screen - Adult Emergenc yon 07-04-2019 Risk Screen - Adult Emergency Preferred Language: Preferred Language: Preferred Language for Discussing Health Care (patient/designee)Wolof Advanced Directives: Advance Directive/DNRno Advance Directive Information Givenpatient/family declined Family Violence Adult: Abuse Screen: Are you or have you been threatened or abused physically, emotionally, or sexually by anyoneno Learning Assessment (Patient): Learning Assessment (Patient): Patient is Able to be Assessed for Learningno Reason Unable to Assessdevelopmental level Learning Assessment (Other Learner): Learning Assessment (Other Learner): Other learner availableno Pressure Injury/TB/Substance: Pressure Injury: Do you have a coughno Substance Use Current or Former Historynever: Cigarette/Tobacco, e-Cigarette/Vaping, Alcohol, Street Drugs Admission Risk Screen: Significant IndicatorsComplete CAGE: CAGE: Is this an injured patient at a Trauma Center ([facility]/[place]): no Electronic Signatures: Kelley Gasca (RN) (Signed 04-Jul-2019 19:08) Authored: Preferred Language, Advanced Directives, Family Violence Adult, Learning Assessment (Patient), Learning Assessment (Other Learner), Pressure Injury/TB/Substance, CAGE Last Updated: 04-Jul-2019 19:08 by Kelley Gasca (MINDY) [facility] Triage - EDon 07-04-2019 Triage - ED Quick Triage: The patient and/or guardian verbally acknowledges placement for services into the following (when Urgent Care Service hours are operating):emergency department Are You no Are You Currently Breastfeedingno Chart Review: CHIEF COMPLAINT RENEE POTTS is a Female patient with a chief complaint of cold symptoms. Triage Date/Time: 04-Jul-2019 19:04 Pain Rating (0-10): 0 = None Vital Signs: Temperature: 100.2F ( 37.9C) taken oral Heart Rate: 109 Respiratory Rate: 22 Pulse Oximetry: 94% on room air, no respiratory support. Weight: 110.0 pounds. Calculated 49.8 kg. Spelter Coma Scale: Best Eye Response: (E4) spontaneous Best Motor Response: (M6) obeys commands Best Verbal Response: (V5) oriented Murtaza Score: 15 Cough lasting greater than 3 weeks: no Allergies: yes Last menstrual period: 27-Jun-2019 Patient has homicidal thoughts: no MARY GRACE: 4 Symptom Notes: . Symptoms Are POSITIVE For: cough, fever and rhinorrhea. Symptoms Are Negative For: chills, congestion, diaphoresis, headache, laryngitis and sore throat. Risk Screens Suicide Risk Screen In the Past Month: Have you wished you were or wished you could go to sleep and not wake up no In the Past Month: Have you had any actual thoughts of killing yourself no In Your Lifetime: Have you ever done anything, started to do anything, or prepared to do anything to end your life no Guaman Fall Scale Screening Has the patient fallen before (or is the patient in the ED as a result of a fall) has not had a fall Does the patient have an impaired gait does not have impaired gait Is the patient cognitively impaired cognitively impaired Guaman Fall Scale History of falling (immediate or previous) no (0) Secondary Diagnosis no (0) Intravenous Therapy/ Heparin/Saline Lock no (0 Gait/Transferring normal/bedrest/wheelchair (0) Ambulatory Aids none/bedrest/nurse assist (0) Mental Status overestimates/forgets limitations (15) Guaman Fall Risk Score: 15 Interventions: Guaman Fall Interventions: *patient oriented to surroundings and call system, * patient/family falls education completed and documented, *patients fall status communicated during bedside handoff, *whiteboard updated, *mode of toileting discussed with patient, *bed in low position with brakes locked, *call light in reach, * non-skid footwear PAIN Pain Scale Used: ELIZABETH Pain Rating (0-10): 0 = None Past Medical History: Past Medical History Reviewedyes Cerebral Palsy: Past Medical History, Active seizure: Past Medical History, Active Electronic Signatures: Kelley Gasca (MINDY) (Signed 04-Jul-2019 19:13) Authored: Triage, Past Medical History Last Updated: 04-Jul-2019 19:13 by Kelley Gasca (MINDY) Normal [facility] Oxcarbazepine Metaboliteon 0 03-07-2018 Oxcarbazepine Metabolite 11 mcg/mL Normal 3 - 35 [facility] Comment on above: Result Comment: ---- ADDITIONAL INFORMATION This test was developed and its performance characteristicsdetermined by [facility] in a manner consistent with CLIArequirements. This test has not been cleared or approved bythe U.S. Food and Drug Administration.Test Performed by:[facility] [id number] Performed By: #### N A, ALVAROCARWill ####Unless otherwise noted, all testing performed by [address] [phone]: [id number] Director: Charbel Herrera M.D. Sodiumon 03-07-2018 Sodium molar conc 139 mmol/L Normal 135-145 [facility] Comment on above: Performed By: #### N A, OXCARB ####Unless otherwise noted, all testing performed by [address] [phone]: [id number] Director: Charbel Herrera M.D. Sodium molar conc 139 mmol/L Invalid Interpretation Code 135 - 145 mmol/L [facility] 25-Hydroxy D Totalon 09-09-2 018 25-Hydroxy D Total 13 ng/mL Low 30-100 [facility] Comment on above: Result Comment: Pleallen preston note that Fluorescein which is used in angiography has been shownto falsely depress the results of TSH with our current assay. Evidencesuggests that patients undergoing fluorescein dye angiography can retainsmall amounts of fluorescein in the body for up to 48 to 72 hourspost-treatment. In the cases of patients with renal insufficiency,retention could be much longer. Samples should be resubmitted postfluorescein clearance to ensure there is no interference with the TSHtest result. Performed By: #### V D25TOT, TSH, CBCWOD, [id number], CMET ####Unless otherwise noted, all testing performed by [address], [place] [phone]: [id number] Director: Charbel Herrera M.D. CBC w/o Diffon 09-09-2017 Erythrocyte distribution width Auto Ratio (RBC) 13.2 % Normal 10.0-14.4 [facility] Comment on above: Performed By: #### V D25TOT, TSH, CBCWOD, [id number], CMET ####Unless otherwise noted, all testing performed by [address] [phone]: [id number] Director: Charbel Herrera M.D. Hematocrit Auto Volume Fraction (Bld) 41.3 % Normal 34.4-44.8 [facility] Comment on above: Performed By: #### V D25TOT, TSH, CBCWOD, [id number], CMET ####Unless otherwise noted, all testing performed by [address] [phone]: [id number] Director: Charbel Herrera M.D. Hemoglobin mass conc (Bld) 14.3 g/dL Normal 11.6-15.4 [facility] Comment on above: Performed By: #### V D25TOT, TSH, CBCWOD, [id number], CMET ####Unless otherwise noted, all testing performed by [address] [phone]: [id number] Director: Charbel Herrera M.D. MCH Auto Entitic mass (RBC) 29.6 pg Normal 27.9-33.9 [facility] Comment on above: Performed By: #### V D25TOT, TSH, CBCWOD, [id number], CMET ####Unless otherwise noted, all testing performed by [address] [phone]: [id number] Director: Charbel Herrera M.D. [facility] Auto mass conc (RBC) 34.6 g/dL Normal 33.1-35.1 [facility] Comment on above: Performed By: #### V D25TOT, TSH, CBCWOD, [id number], CMET ####Unless otherwise noted, all testing performed by [address] [phone]: [id number] Director: Charbel Herrera M.D. MCV Auto Entitic volume (RBC) 85.7 fL Normal 82.6-98.9 [facility] Comment on above: Performed By: #### V D25TOT, TSH, CBCWOD, [id number], CMET ####Unless otherwise noted, all testing performed by [place] [phone]: [id number] Director: Charbel Herrera M.D. Platelet mean volume Auto Entitic volume (Bld) 9.1 fL Normal 7.0-10.6 [facility] Comment on above: Performed By: #### V D25TOT, TSH, CBCWOD, [id number], CMET ####Unless otherwise noted, all testing performed by [address] [phone]: [id number] Director: Charbel Herrera M.D. Platelets Auto #/vol (Bld) 219 K/mcL Normal 162-402 [facility] Comment on above: Performed By: #### V D25TOT, TSH, CBCWOD, [id number], CMET ####Unless otherwise noted, all testing performed by [address] [place] [phone]: [id number] Director: Charbel Herrera M.D. RBC Auto #/vol (Bld) 4.82 M/mcL Normal 3.7-5.0 [facility] Comment on above: Performed By: #### V D25TOT, TSH, CBCWOD, [id number], CMET ####Unless otherwise noted, all testing performed by [address] [phone]: [id number] Director: Charbel Herrera M.D. WBC Auto #/vol (Bld) 8.2 K/mcL Normal 3.4-10.6 [facility] Comment on above: Performed By: #### V D25TOT, TSH, CBCWOD, [id number], CMET ####Unless otherwise noted, all testing performed by [address] [phone]: [id number] Director: Charbel Herrera M.D. Comprehensive Metabolic Pane [facility] 09-09-2017 Albumin mass conc 4.2 g/dL Normal 3.2-5.2 [facility] Comment on above: Performed By: #### V D25TOT, TSH, CBCWOD, [id number], CMET ####Unless otherwise noted, all testing performed by [address] [phone]: [id number] Director: Charbel Herrera M.D. ALP enzyme act/vol 42 U/L Normal 40-140 [facility] Comment on above: Performed By: #### V D25TOT, TSH, CBCWOD, [id number], CMET ####Unless otherwise noted, all testing performed by [facility] [phone]: [id number] Director: Charbel Herrera M.D. ALT enzyme act/vol 23 U/L Normal 14-65 [facility] Comment on above: Result Comment: This test result might be falsely depressed or falsely elevated onsamples drawn from patients taking Sulfasalazine and Sulfapyridine.Venipuncture should occur prior to taking either of these drugs. Performed By: #### V D25TOT, TSH, CBCWOD, AS73QAB, CMET ####Unless otherwise noted, all testing performed by [address] [phone]: [id number] Director: Charbel Herrera M.D. AST enzyme act/vol 22 U/L Normal 0-45 [facility] Comment on above: Result Comment: This test result might be falsely depressed or falsely elevated onsamples drawn from patients taking Sulfasalazine and Sulfapyridine.Venipuncture should occur prior to taking either of these drugs. Performed By: #### V D25TOT, TSH, CBCWOD, [id number], CMET ####Unless otherwise noted, all testing performed by [address] [phone]: [id number] Director: Charbel Herrera M.D. Bilirubin mass conc 0.3 mg/dL Normal 0.3-1.2 [facility] Comment on above: Performed By: #### V D25TOT, TSH, CBCWOD, [id number], CMET ####Unless otherwise noted, all testing performed by [address] [phone]: [id number] Director: Charbel Herrera M.D. Calcium mass conc 9.4 mg/dL Normal 8.4-10.2 [facility] Comment on above: Performed By: #### V D25TOT, TSH, CBCWOD, [id number], CMET ####Unless otherwise noted, all testing performed by [address] [phone]: [id number] Director: Charbel Herrera M.D. Chloride molar conc 102 mmol/L Normal 98-108 [facility] Comment on above: Performed By: #### V D25TOT, TSH, CBCWOD, [id number], CMET ####Unless otherwise noted, all testing performed by [address] [phone]: [id number] Director: Charbel Herrera M.D. CO2 molar conc 26 mmol/L Normal 21-32 [facility] Comment on above: Performed By: #### V D25TOT, TSH, CBCWOD, [id number], CMET ####Unless otherwise noted, all testing performed by [address] [phone]: [id number] Director: Charbel Herrera M.D. Creatinine mass conc 0.76 mg/dL Normal 0.40-1.10 [facility] Comment on above: Performed By: #### V D25TOT, TSH, CBCWOD, [id number], CMET ####Unless otherwise noted, all testing performed by [address] [phone]: [id number] Director: Charbel Herrera M.D. GFR/1.73 sq M predicted among blacks MDRD vol rate/area (S/P/Bld) mL/min/{1.73_m2} Normal [facility] Comment on above: Result Comment: Afri can Lithuanian GFR Calc Performed By: #### V D25TOT, TSH, CBCWOD, [id number], CMET ####Unless otherwise noted, all testing performed by [address] [phone]: [id number] Director: Charbel Herrera M.D. GFR/1.73 sq M predicted among non-blacks MDRD vol rate/area (S/P/Bld) mL/min/{1.73_m2} Normal [facility] Comment on above: Result Comment: Non- GFR CalceGFR is an estimated Glomerular Filtration Rate based on the valueof the patient's serum creatinine. In outpatients, eGFR should be usedas a helpful tool in screening for CKD. In inpatients or patients withacute renal failure, eGFR represents the GFR at the moment of the drawand should be used with caution. Performed By: #### V D25TOT, TSH, CBCWOD, [id number], CMET ####Unless otherwise noted, all testing performed by [address] [phone]: [id number] Director: Charbel Herrera M.D. Glucose mass conc 76 mg/dL Normal 70-99 [facility] Comment on above: Result Comment: This test result might be falsely depressed or falsely elevated onsamples drawn from patients taking Sulfasalazine and Sulfapyridine.Venipuncture should occur prior to taking either of these drugs. Performed By: #### V D25TOT, TSH, CBCWOD, [id number], CMET ####Unless otherwise noted, all testing performed by [address] [phone]: [id number] Director: Charbel Herrera M.D. Potassium molar conc 3.8 mmol/L Normal 3.5-5.1 [facility] Comment on above: Performed By: #### V D25TOT, TSH, CBCWOD, [id number], CMET ####Unless otherwise noted, all testing performed by [address] [phone]: [id number] Director: Charbel Herrera M.D. Protein mass conc 8.6 g/dL High 6.0-8.0 [facility] Comment on above: Performed By: #### V D25TOT, TSH, CBCWOD, [id number], CMET ####Unless otherwise noted, all testing performed by [address] [phone]: [id number] Director: Charbel Herrera M.D. Sodium molar conc 139 mmol/L Normal 135-145 [facility] Comment on above: Performed By: #### V D25TOT, TSH, CBCWOD, [id number], CMET ####Unless otherwise noted, all testing performed by [address] [phone]: [id number] Director: Charbel Herrera M.D. Urea nitrogen mass conc 18 mg/dL Normal 8-25 [facility] Comment on above: Performed By: #### V D25TOT, TSH, CBCWOD, [id number], CMET ####Unless otherwise noted, all testing performed by [address] [phone]: [id number] Director: Charbel Herrera M.D. EEG Evoked Response Reporton 09-09-2017 EEG Evoked Response Report [address] [place] [address] [place], [place] [address] [place], [place] [address]OUWBMRX NAME: RENEE POTTSDATE: 09/09/2017MED. REC. NUMBER: [id number] PHYSICIAN:Brodie Ralph M.D. TYPE: O AGE: 27ROOM#:EEG #:INTERPRETING PHYSICIAN: Zhou Mcdowell M.D.EEGReason for EEG: SeizuresThis is a 16 channel EEG recording. This recording begins with the patientawake. There is a moderately well developed, fairly organized backgroundactivity with a dominant rhythm of 5-6Hz occasionally reaching 7Hz in activitywith occasional intermixed faster frequency. There are occasional 4-5Hz spikeand wave discharges seen in D4 and T4 and also cluster of 5Hz sharp and wavedischarges seen at C3/ B3 lasting 2seconds in duration, occasionally seendiffusely. Hyperventilation was not done. Photic stimulation produced nodriving. No sleep patterns were noted.IMPRESSION: This is an abnormal EEG due to the presence of 4-5Hz spike and wavedischarges seen independently on both temporal areas, sometimes diffusely,which is suggestive of a cortical reticular or generalized type of dischargeconsistent with a primary generalized seizure. There is also slowing of thebackground, suggesting a mild degree of generalized non- specificneurophysiological disturbance. No clear ictal activity was seen during therecording.GT\ abDD:09/09/2017 16:35DT:09/10/2017 08:09Electronically Signed By Zhou Mcdowell M.D. on 10 Sep 2017 19:38:33 GMT Normal [facility] TSHon 09-09-2017 Thyrotropin Qn 2.89 uIU/mL Normal 0.320-5.00 0 [facility] Comment on above: Result Comment: Samp les from patients routinely receiving high dose biotin therapy(100-300 mg/day) may show falsely decreased results. Please correlateclinically. Performed By: #### V D25TOT, TSH, CBCWOD, [id number], CMET ####Unless otherwise noted, all testing performed by [address] [phone]: [id number] Director: Charbel Herrera M.D. Vitamin B12 and Folateson Cobalamin (Vitamin B12) mass conc 1107 pg/mL High 193-986 [facility] Comment on above: Performed By: #### V D25TOT, TSH, CBCWOD, [id number], CMET ####Unless otherwise noted, all testing performed by [address] [phone]: [id number] Director: Charbel Herrera M.D. Folate > 20.0 High 3.1-17.5 [facility] Comment on above: Performed By: #### V D25TOT, TSH, CBCWOD, [id number], CMET ####Unless otherwise noted, all testing performed by [address] [phone]: [id number] Director: Charbel Herrera M.D. CT BRAIN W/O CONTRASTon 08-19 CT BRAIN W/O CONTRAST Final ReportAccession No: [id number] Performed: Sep 02 2017 10:59AMExamination: CT BRAIN W/O CONTRASTEXAM: CT BRAIN W/O CONTRASTCLINICAL STATEMENT: EpilepsyCOMPARISON: None.TECHNIQUE: CT examination of the head without IV contrast.Dose reduction techniques were achieved by using automated exposurecontroland/or adjustment of mA and/or kV according to patient size and/or use ofiterative reconstruction technique.FINDINGS: The ventricles, sulci, and basilar cisterns are normal inappearance.The cerebral hemispheres, brain stem and cerebellar hemispheres arenormal.Loyd-white interface is intact. No evidence of acute infarct. Noevidence ofmass, hemorrhage or density abnormality. The osseous structures areintact.Orbital apices normal.IMPRESSION:Normal examination.Interpreting Physician: JILLIAN SALMON M.D.Trans: n/a : cc: Normal [facility] Auto Diffon 07-12-2017 Basophils Auto #/vol (Bld) 0.0 E3/mcL Normal 0.0-0.2 [facility] Comment on above: Order Comment: Order Added by Discern Expert. Performed By: #### 2 [id number] ####BRIAN UzyXgoc9937 [place] [address] Basophils/100 WBC Auto (Bld) 0.6 % Normal 0.0-2.0 [facility] Comment on above: Order Comment: Order Added by Discern Expert. Performed By: #### 2 948196 ####BRIAN EkuBjec9655 [place] [address] Eos Absolute 0.0 E3/mcL Normal 0.0-0.7 [facility] Comment on above: Order Comment: Order Added by Discern Expert. Performed By: #### 2 826557 ####BRIAN KvhOevb7264 [place] [address] Eosinophils/100 leukocytes 0.6 % Normal 0.0-11.0 [facility] Comment on above: Order Comment: Order Added by Discern Expert. Performed By: #### 2 638071 ####BRIAN VrkOurp9299 [place] [address] Lymphocytes 1.3 E3/mcL Normal 1.2-3.4 [facility] Comment on above: Order Comment: Order Added by Discern Expert. Performed By: #### 2 899194 ####BRIAN SvpWjoe6023 [place] [address] Lymphocytes/100 leukocytes 17.4 % Low 20.0-55.0 [facility] Comment on above: Order Comment: Order Added by Discern Expert. Performed By: #### 2 018627 ####BRIAN LkoDpvp8583 [place] [address] [place] Absolute 0.6 E3/mcL Normal 0.0-0.7 [facility] Comment on above: Order Comment: Order Added by Discern Expert. Performed By: #### 2 822046 ####BRIAN Mtzo1025 [place] [address] Monocytes/100 leukocytes 7.9 % Normal 0.0-10.0 [facility] Comment on above: Order Comment: Order Added by Discern Expert. Performed By: #### 2 190302 ####BRIAN Mtzo1025 [place] [address] Neutro Absolute 5.6 E3/mcL Normal 1.4-6.5 [facility] Comment on above: Order Comment: Order Added by Discern Expert. Performed By: #### 2 140928 ####BRIAN Mtzo1025 [place] [address] Neutro Auto 73.5 % Normal 37.0-75.0 [facility] Comment on above: Order Comment: Order Added by Discern Expert. Performed By: #### 2 164539 ####BRIAN Mtzo1025 [place] [address] BMPon 07-12-2017 BUN/Creatinine Ratio 16.7 ratio Normal 5.4-30.0 [facility] Comment on above: Performed By: #### 2 119113 ####BRIAN Barraza1025 [place] [address] Creatinine 0.6 mg/dL Normal 0.6-1.3 [facility] Comment on above: Performed By: #### 2 270891 ####BRIAN DianaLvgVzaz9613 [place] [address] Urea nitrogen 10 mg/dL Normal 7-18 [facility] Comment on above: Performed By: #### 2 399015 ####BRIAN DianaHxrDixc3353 [place] [address] Calcium 9.1 mg/dL Normal 8.4-10.2 [facility] Comment on above: Performed By: #### 2 130589 ####BRIAN DianaVhhHlww5284 [place] [address] Chloride 103 mmol/L Normal 98-107 [facility] Comment on above: Performed By: #### 2 390457 ####BRIAN DianaSmaKdnc2858 [place] [address] CO2 25.0 mmol/L Normal 24.0-30.0 [facility] Comment on above: Performed By: #### 2 172897 ####BRIAN SekHlrg4211 [place] [address] Glucose mass conc 90 mg/dL Normal 70-[address] [facility] Comment on above: Performed By: #### 2 852106 ####BRIANAllen BarrazaXvySiib6114 [place] [address] Potassium molar conc 3.9 mmol/L Normal 3.5-5.1 [facility] Comment on above: Performed By: #### 2 874409 ####BRIANAllen BarrazaXoeEaod8370 [place] [address] Sodium 137 mmol/L Normal 136-145 [facility] Comment on above: Performed By: #### 2 321735 ####BRIANAllen DianaZnlAwev8748 [place] [address] CBC w/ Auto Diffon 8 Erythrocyte distribution width Auto Ratio (RBC) 12.8 % Normal 11.5-14.5 [facility] Comment on above: Performed By: #### 2 756767 ####BRIANAllen DianaXvzVixc7875 [place] [address] Erythrocytes (RBC) 4.71 E6/mcL Normal 3.90-5.40 [facility] Comment on above: Performed By: #### 2 344331 ####BRIANAllen DianaEzlZfxy0893 [place] [address] Hematocrit (HCT) 40.8 % Normal 36.0-48.0 [facility] Comment on above: Performed By: #### 2 455170 ####BRIANAllen DianaOqpSdlh8217 [place] [address] Hemoglobin mass conc (Bld) 13.6 g/dL Normal 12.0-16.0 [facility] Comment on above: Performed By: #### 2 628977 ####BRIANAllen DianaEtnYkpv9859 [place] [address] MCH 28.8 pg Normal 27.0-31.0 [facility] Comment on above: Performed By: #### 2 928696 ####BRIAN Mtzo1025 [place] [address] MCHC mass conc (RBC) 33.3 g/dL Normal 33.0-37.0 [facility] Comment on above: Performed By: #### 2 262173 ####BRIAN Mtzo1025 [place] [id number] MCV 86.6 fL Normal 78.0-100.0 [facility] Comment on above: Performed By: #### 2 244322 ####BRIAN Mtzo1025 [place] [id number] Platelet mean volume (PMV) 9.0 fL Normal 7.4-11.0 [facility] Comment on above: Performed By: #### 2 682913 ####BRIAN Mtzo1025 [place] [id number] Platelets 217 E3/mcL Normal 130-400 [facility] Comment on above: Performed By: #### 2 552047 ####BRIAN Mtzo1025 [place] [id number] WBC (Leukocytes) 7.6 E3/mcL Normal 3.6-11.0 [facility] Comment on above: Performed By: #### 2 132246 ####BRIAN Mtzo1025 [place] [id number] UA Completeon 07-12-2017 UA Blood Negative Normal Negative [facility] Comment on above: Performed By: #### 2 205581 ####BRIAN SggJfsl5140 [place] [address] UA Clarity Clear Normal Clear [facility] Comment on above: Performed By: #### 2 801194 ####BRIAN LqzTzln5307 [place] [address] UA Leuk Est Negative Normal Negative [facility] Comment on above: Performed By: #### 2 510433 ####BRIAN HykMpnw0671 [place] [address] UA Mucous Few Abnormal Trace [facility] Comment on above: Performed By: #### 2 583327 ####BRIANAllen DianaQduMryj6230 [place] [address] UA Nitrite Negative Normal Negative [facility] Comment on above: Performed By: #### 2 308415 ####BRIAN Mtzo1025 [place] [address] UA pH 6.0 Normal 4.6-8.0 [facility] Comment on above: Performed By: #### 2 935299 ####BRIAN Mtzo1025 [place] [address] UA Protein Negative Normal Negative [facility] Comment on above: Performed By: #### 2 132629 ####BRIAN Mtzo1025 [place] [address] UA Spec Grav 1.017 Normal 1.003-1.03 0 [facility] Comment on above: Performed By: #### 2 744420 ####BRIAN Mtzo1025 [place] [address] UA Squam Epithelial 0-5 Normal 0-5 [facility] Comment on above: Performed By: #### 2 478307 ####BRIAN Mtzo1025 [place] [address] UA Urobilinogen Negative Normal [facility] Comment on above: Performed By: #### 2 814424 ####BRIAN Mtzo1025 [place] [address] UA WBC 0-5 Normal 0-5 [facility] Comment on above: Performed By: #### 2 320681 ####BRIAN Mtzo1025 [place] [address] Urine, color Yellow Normal Yellow [facility] Comment on above: Performed By: #### 2 508380 ####BRIAN Mtzo1025 [place] [address] Urine, erythrocytes 0-3 Normal 0-3 [facility] Comment on above: Performed By: #### 2 654321 ####BRIAN Mtzo1025 [place] [address] Urine, glucose Negative Normal Negative [facility] Comment on above: Performed By: #### 2 475988 ####BRIAN Mtzo1025 [place] [address] Urine, ketones presence Negative Normal Negative [facility] Comment on above: Performed By: #### 2 846220 ####BRIAN YkgEyre7986 [place] [address] Urine, urobilinogen Negative Normal Negative [facility] Comment on above: Performed By: #### 2 800793 ####BRIAN DianaLegIzhb2292 [place] [address] eGFRon 07-12-2017 eGFR (non-black) mL/min/{1.73_m2} Normal [facility] Comment on above: Order Comment: Order Added by Discern Expert. Performed By: #### 2 917760 ####BRIAN PulQpft7857 [place] [address] C Urineon 05-22-2017 C Urine Final Report: No growth Normal [facility] Comment on above: Performed By: #### 2 344493 ####BRIAN Microbiology Xgqefbhrvv6270 [place] [address] Auto Diffon 05-20-2017 Basophils Auto #/vol (Bld) 0.0 E3/mcL Normal 0.0-0.2 [facility] Comment on above: Order Comment: Order Added by Discern Expert. Performed By: #### 2 223505 ####BRIAN ZcdIppj8250 [place] [address] Basophils/100 WBC Auto (Bld) 0.6 % Normal 0.0-2.0 [facility] Comment on above: Order Comment: Order Added by Discern Expert. Performed By: #### 2 068841 ####BRIAN WesCnmy4203 [place] [address] Eos Absolute 0.1 E3/mcL Normal 0.0-0.7 [facility] Comment on above: Order Comment: Order Added by Discern Expert. Performed By: #### 2 128776 ####BRIAN ZspKatn0057 [place] [address] Eosinophils/100 leukocytes 0.8 % Normal 0.0-11.0 [facility] Comment on above: Order Comment: Order Added by Discern Expert. Performed By: #### 2 846664 ####BRIAN JvsCgro1014 [place] [address] Lymphocytes 1.3 E3/mcL Normal 1.2-3.4 [facility] Comment on above: Order Comment: Order Added by Discern Expert. Performed By: #### 2 292339 ####BRIAN Mtzo1025 [place] [address] Lymphocytes/100 leukocytes 18.9 % Low 20.0-55.0 [facility] Comment on above: Order Comment: Order Added by Discern Expert. Performed By: #### 2 034540 ####BRIAN Mtzo1025 [place] [address] [place] Absolute 0.6 E3/mcL Normal 0.0-0.7 [facility] Comment on above: Order Comment: Order Added by Discern Expert. Performed By: #### 2 690585 ####BRIAN Mtzo1025 [place] [address] Monocytes/100 leukocytes 7.9 % Normal 0.0-10.0 [facility] Comment on above: Order Comment: Order Added by Discern Expert. Performed By: #### 2 651030 ####BRIAN Mtzo1025 [place] [address] Neutro Absolute 5.1 E3/mcL Normal 1.4-6.5 [facility] Comment on above: Order Comment: Order Added by Discern Expert. Performed By: #### 2 372590 ####BRIAN Mtzo1025 [place] [address] Neutro Auto 71.8 % Normal 37.0-75.0 [facility] Comment on above: Order Comment: Order Added by Discern Expert. Performed By: #### 2 295185 ####BRIAN Mtzo1025 [place] [address] BMPon 05-20-2017 BUN/Creatinine Ratio 20.0 ratio Normal 5.4-30.0 [facility] Comment on above: Performed By: #### 2 969554 ####BRIAN DianaXfsHgah4576 [place] [address] Creatinine 0.7 mg/dL Normal 0.6-1.3 [facility] Comment on above: Performed By: #### 2 879123 ####BRIAN HcvQkrx4704 [place] [address] Urea nitrogen 14 mg/dL Normal 7-18 [facility] Comment on above: Performed By: #### 2 044291 ####BRIAN UshOpqa9038 [place] [address] Calcium 9.3 mg/dL Normal 8.4-10.2 [facility] Comment on above: Performed By: #### 2 559087 ####BRIAN WobEton7461 [place] [address] Chloride 106 mmol/L Normal 98-107 [facility] Comment on above: Performed By: #### 2 112094 ####BRIAN CsqLnbz2608 [place] [address] CO2 26.3 mmol/L Normal 24.0-30.0 [facility] Comment on above: Performed By: #### 2 953952 ####BRIAN FxsPhhf7512 [place] [address] Glucose mass conc 98 mg/dL Normal 70-[address] [facility] Comment on above: Performed By: #### 2 248029 ####BRIAN NqqOqic2340 [place] [address] Potassium molar conc 4.0 mmol/L Normal 3.5-5.1 [facility] Comment on above: Performed By: #### 2 387673 ####BRIAN DbdShnv6735 [place] [address] Sodium 141 mmol/L Normal 136-145 [facility] Comment on above: Performed By: #### 2 516223 ####BRIAN BjbDbxq3757 [place] [address] CBC w/ Auto Diffon 7 Erythrocyte distribution width Auto Ratio (RBC) 12.7 % Normal 11.5-14.5 [facility] Comment on above: Performed By: #### 2 314735 ####BRIAN SptAnss3939 [place] [address] Erythrocytes (RBC) 4.66 E6/mcL Normal 3.90-5.40 [facility] Comment on above: Performed By: #### 2 025643 ####BRIAN RioAqus2206 [place] [address] Hematocrit (HCT) 40.2 % Normal 36.0-48.0 [facility] Comment on above: Performed By: #### 2 625210 ####BRIAN DianaLpxMsrj0201 [place] [address] Hemoglobin mass conc (Bld) 13.5 g/dL Normal 12.0-16.0 [facility] Comment on above: Performed By: #### 2 098826 ####BRIAN DianaHawSzyt6915 [place] [address] MCH 29.1 pg Normal 27.0-31.0 [facility] Comment on above: Performed By: #### 2 009662 ####BIRAN SneKszl4692 [place] 5128205 MCHC mass conc (RBC) 33.7 g/dL Normal 33.0-37.0 [facility] Comment on above: Performed By: #### 2 823074 ####BRIAN Mtzo1025 [place] [address] MCV 86.3 fL Normal 78.0-100.0 [facility] Comment on above: Performed By: #### 2 145648 ####BRIAN DianaUbxAuoc5730 [place] [address] Platelet mean volume (PMV) 8.4 fL Normal 7.4-11.0 [facility] Comment on above: Performed By: #### 2 440907 ####BRIAN DianaYnjTchn8914 [place] [address] Platelets 234 E3/mcL Normal 130-400 [facility] Comment on above: Performed By: #### 2 169280 ####BRIAN DianaFjyJots0101 [place] [address] WBC (Leukocytes) 7.1 E3/mcL Normal 3.6-11.0 [facility] Comment on above: Performed By: #### 2 693420 ####BRIAN DianaMjjAhiv9568 [place] [address] UA Completeon 05-20-2017 UA Blood Negative Normal Negative [facility] Comment on above: Order Comment: Strai ght Cath as needed Performed By: #### 8 [id number] ####BRIAN Urinalysis Automated Vggznjudqm4133 [place] [address] UA Amorph Tori Trace Abnormal None [facility] Comment on above: Order Comment: Strai ght Cath as needed Performed By: #### 8 [id number] ####BRIAN Urinalysis Automated [address] [place] [address] UA Clarity Cloudy Abnormal Clear [facility] Comment on above: Order Comment: Strai ght Cath as needed Performed By: #### 8 [id number] ####BRIAN Urinalysis Automated Wiuktzrmgr2951 [place] [address] UA Leuk Est Negative Normal Negative [facility] Comment on above: Order Comment: Strai ght Cath as needed Performed By: #### 8 [id number] ####BRIAN Urinalysis Automated [address]fkbp[address] [place] [address] UA Mucous Many Abnormal Trace [facility] Comment on above: Order Comment: Strai ght Cath as needed Performed By: #### 8 [id number] ####BRIAN Urinalysis Automated Giqwmjkbbv[address] [place] [address] UA Nitrite Negative Normal Negative [facility] Comment on above: Order Comment: Strai ght Cath as needed Performed By: #### 8 [id number] ####BRIAN Urinalysis Automated Wwckbhznou[address] [place] [address] UA pH 8.0 Normal 4.6-8.0 [facility] Comment on above: Order Comment: Strai ght Cath as needed Performed By: #### 8 [id number] ####BRIAN Urinalysis Automated Qphltbfvjb[address] [place] [address] UA Protein Negative Normal Negative [facility] Comment on above: Order Comment: Strai ght Cath as needed Performed By: #### 8 1053895 ####BRIAN Urinalysis Automated Nllamwtrol[address] [place] [address] UA Spec Grav 1.018 Normal 1.003-1.03 0 [facility] Comment on above: Order Comment: Strai ght Cath as needed Performed By: #### 8 4058545 ####BRIAN Urinalysis Automated Iairzyvqht[address] [place] [address] UA Urobilinogen Negative Normal [facility] Comment on above: Order Comment: Strai ght Cath as needed Performed By: #### 8 [id number] ####BRIAN Urinalysis Automated Pjahlicblo9249 [place] [address] UA WBC 0-5 Normal 0-5 [facility] Comment on above: Order Comment: Strai ght Cath as needed Performed By: #### 8 2787672 ####BRIAN Urinalysis Automated Nlafavfhva4980 [place] [address] Urine, color Yellow Normal Yellow [facility] Comment on above: Order Comment: Strai ght Cath as needed Performed By: #### 8 [id number] ####BRIAN Urinalysis Automated Cifvzrxbos9426 [place] [address] Urine, glucose Negative Normal Negative [facility] Comment on above: Order Comment: Strai ght Cath as needed Performed By: #### 8 [id number] ####BRIAN Urinalysis Automated Oztaxphxqb2245 [place] [address] Urine, ketones presence Negative Normal Negative [facility] Comment on above: Order Comment: Strai ght Cath as needed Performed By: #### 8 2082117 ####BRIAN Urinalysis Automated Wljtryyrhq1273 [place] [address] Urine, urobilinogen Negative Normal Negative [facility] Comment on above: Order Comment: Strai ght Cath as needed Performed By: #### 8 [id number] ####BRIAN Urinalysis Automated Rjbpacgivp8466 [place] [address] XR Chest 1 View Frontalon XR Chest 1 View Frontal Exam Date/Time:05/20/2017 12:48 ESTReason for Exam:Shortness of breath (SOB)ReportEXAM: XR Chest 1 VIEW FRONTALREASON FOR EXAM: Shortness of breath (SOB). Seizure activity.TECHNIQUE: Portable AP upright view of the chest.COMPARISON: None.FINDINGS: Heart size is satisfactory. No mediastinal widening is seen. There isprominence of the right infrahilar markings and there is some indistinctness ofthe right heart border. This may relate to developing bronchitic orinfiltrative process. Aspiration would not be excluded. Remainder of the lungfields are expanded and clear. No effusion is seen. Osseous structures appearintact.IMPRESSION:Righ t infrahilar bronchial vascular marking prominence with an indistinctnessof the right heart border, which may relate to right middle lobe developinginfiltrative process or bronchial inflammation. FINAL REPORT Dictated: 05/20/2017 3:03 pm Lucio Parrish DOSigned (Electronic Signature): 05/20/2017 3:03 pmSigned by: Lucio Parrish DO Technologist: TRD Normal [facility] eGFRon 05-20-2017 eGFR (non-black) mL/min/{1.73_m2} Normal [facility] Comment on above: Order Comment: Order added by Discern Expert. Performed By: #### 1 [id number] ####BRIAN JeePgmm8433 [place] [address] Vital Signs Date Time Vital Sign Value Performing Clinician Faci lity 02-05-2025 14:27-0400 Body height 172.[address] Olya Johnson Work Phone: [facility] 02-05-2025 14:27-0400 Body mass index (BMI) [Ratio] 16.5 kg/m2 Dr. Olya Johnson Work Phone: [facility] 02-05-2025 14:27-0400 Body temperature 99.8 [degF] Dr. Olya Johnson Work Phone: [facility] 02-05-2025 14:27-0400 Body weight 49.[address] Olya Johnson Work Phone: [facility] 02-05-2025 14:27-0400 Diastolic blood pressure 70 mm[Hg] Dr. Olya Johnson Work Phone: [facility] 02-05-2025 14:27-0400 Heart rate 89 /min Dr. Olya Johnson Work Phone: [facility] 02-05-2025 14:27-0400 Respiratory rate 16 /min Dr. Olya Johnson Work Phone: [facility] 02-05-2025 14:27-0400 SaO2% (BldA) [Mass fraction] 99 % Dr. Olya Johnson Work Phone: [facility] 02-05-2025 14:27-0400 Systolic blood pressure 104 mm[Hg] Dr. Olya Johnson Work Phone: [facility] 04-01-2023 22:12-0400 Diastolic blood pressure 70 mm[Hg] Dr. Olya Johnson Work Phone: [facility] 04-01-2023 22:12-0400 Heart rate 107 /min Dr. Olya Johnson Work Phone: [facility] 04-01-2023 22:12-0400 Systolic blood pressure 101 mm[Hg] Dr. Olya Johnson Work Phone: [facility] 04-01-2023 13:40-0400 Body height 172.[address] Olya Johnson Work Phone: [facility] 04-01-2023 13:40-0400 Body mass index (BMI) [Ratio] 15.5 kg/m2 Dr. Olya Johnson Work Phone: [facility] 04-01-2023 13:40-0400 Body temperature 98.4 [degF] Dr. Olya Johnson Work Phone: [facility] 04-01-2023 13:40-0400 Body weight 46.[address] Olya Johnson Work Phone: [facility] 04-01-2023 13:40-0400 Diastolic blood pressure 80 mm[Hg] Dr. Olya Johnson Work Phone: [facility] 04-01-2023 13:40-0400 Heart rate 73 /min Dr. Olya Johnson Work Phone: [facility] 04-01-2023 13:40-0400 Respiratory rate 16 /min Dr. Olya Johnson Work Phone: [facility] 04-01-2023 13:40-0400 SaO2% (BldA) [Mass fraction] 98 % Dr. Olya Johnson Work Phone: [facility] 04-01-2023 13:40-0400 Systolic blood pressure 110 mm[Hg] Dr. Olya Johnson Work Phone: [facility] Encounters Encounter Date Encounter Type Care Provider Facility Start: 02-05-2025 End: [facility] [place]: 02-05-2025 End: 02-05-[address] Brodie Ralph MD -[facility] Work Phone: Start: 04-17-2024 End: 04-17-2024 ambulatory Brodie Ralph [place] [place] Start: 04-16-2023 Non-patient / Non-visit Dr. Olya Johnson Work Phone: [facility] Start: 04-16-2023 End: 04-16-[address] Olya Johnson Work Phone: [facility] Work Phone: Start: 04-16-2023 End: 04-16-[address] Olya Johnson Work Phone: [facility] Work Phone: Start: 04-01-2023 End: 04-01-[address] Olya Johnson Work Phone: [facility] Work Phone: Start: 03-29-2023 End: 03-29-[address] Olya Johnson Work Phone: [facility] Work Phone: Start: 03-29-2023 End: 03-29-[address] Olya Johnson Work Phone: [facility] Work Phone: Start: 02-26-2023 End: 02-26-2023 Subsequent hospital visit by physician Kami [facility] Comment on above: [place] Start: 11-02-2022 ambulatory [facility] Start: 09-22-2022 End: 09-25-2022 ambulatory [facility] Start: 09-22-2022 End: 09-24-2022 Subsequent hospital visit by physician Dye X-Ray Room 1 [facility] Comment on above: Acquired foot deform ity, right Right hip pain Start: 05-07-2021 End: 05-11-2021 ambulatory BRODIE RALPH [facility] Start: 08-08-2020 End: 08-08-2020 Orders Only Jessika Santamaria Work Phone: [facility] Start: 03-26-2020 End: 03-26-2020 Subsequent hospital visit by physician Olya [facility] Start: 07-18-2019 End: 07-20-2019 Subsequent hospital visit by physician Hardik 1 [facility] Comment on above: Influenza B Start: 03-07-2018 Patient encounter Brodie Ralph Facility:[facility] Start: 03-07-2018 End: 03-07-2018 Patient encounter Brodie Ralph Work Phone: [facility] Start: 09-09-2017 Patient encounter Brodie Ralph Facility:[facility] Start: 09-02-2017 Patient encounter Brodie Ralph Facility:[facility] Start: 07-12-2017 End: 07-12-2017 Emergency department patient visit [facility] Facility:[facility] Start: 06-01-2017 End: 06-01-2017 Emergency department patient visit [facility] Start: 05-20-2017 End: 05-20-2017 Emergency department patient visit [facility] Start: 12-14-2016 End: 12-14-2016 Emergency department patient visit [facility] Facility:[facility] Procedures Date Procedure Procedure Detail Performing Clinician Start: 02-26-2023 Blood count complete automated Robinson Matthews COUNTER INSTALLER - AVIONICS SYSTEM ENGINEER Work Phone: Start: 09-22-2022 Radex foot complete minimum 3 views Olya Johnson MD Work Phone: Start: 07-18-2019 Radiologic exam ches t 2 views Olya Johnson MD Work Phone: Start: 03-07-2018 End: 03-07-2018 Sodium serum plasma or whole blood Brodie Ralph Work Phone: Plan of Treatment Date Care Activity Detail Author Start: 06-24-2023 Depression Screen Depression Screen [facility] [employer] Start: 01-19-2023 Influenza vaccination [facility] [employer] Start: 11-30-2022 End: 11-30-2022 Patient encounter procedure 11/30/2022 Initial consult Podiatry Danielito Tijerina, DESTIN [address] [place] [address] [facility] [facility] Start: 2020 Screening for malignant neoplasm of cervix [facility] [employer] Start: 02-20-2020 Influenza vaccination Flu vaccine (#1) [employer] [place] Start: 02-20-2020 Influenza vaccination given Sequential Influenza Vaccine (#1) [facility] Start: 02-19-2019 Influenza vaccination Flu vaccine (#1) [employer] Work Phone: Start: 02-12-2018 DTaP/Tdap/Td vaccine (7 - Td or Tdap) DTaP/Tdap/Td vaccine (7 - Td or Tdap) [facility] [employer] Start: 02-12-2018 DTaP/Tdap/Td vaccine (7 - Td) DTaP/Tdap/Td vaccine (7 - Td) [employer] Phone: Start: 02-12-2018 Tetanus vaccination Tetanus: Every 10yrs [facility] Start: 2011 Cervical cancer screen Cervical cancer screen [employer] Phone: Start: 2011 Screening for malignant neoplasm of cervix [facility] [employer] Start: 2008 Hepatitis C antibody, confirmatory test Hepatitis C Screening [facility] Start: 2008 Hepatitis C screening Hepatitis C screen [facility] Start: 06-04-2008 Hepatitis B vaccine (3 of 3 - 3-dose primary series) Hepatitis B vaccine (3 of 3 - 3-dose primary series) [place], [place] Start: 2005 HIV screen HIV screen [facility] Work Phone: Start: 2005 HIV screening [facility] Start: 2002 Adolescent depression screening assessment Depression Screening (PHQ9) [facility] Start: 11-13-1996 Varicella vaccine (2 of 2 - 2-dose childhood series) Varicella vaccine (2 of 2 - 2-dose childhood series) [facility] Start: 1993 History and physical examination, annual for health maintenance Wellness Visit [facility] Start: 01-06-1991 COVID-19 Vaccine (#1) COVID-19 Vaccine (#1) [facility] Start: 1990 Screening for malignant neoplasm of cervix Pap Smear [facility] Alanine aminotransfe rase [Enzymatic activity/volume] in Serum or Plasma [facility] Albumin [Mass/volume ] in Serum or Plasma [facility] Alkaline phosphatase [Enzymatic activity/volume] in Serum or Plasma [facility] Anion gap in Serum or Plasma [facility] Bilirubin, total measurement [facility] BUN/Creatinine ratio [facility] Calcium [Mass/volume ] in Serum or Plasma [facility] Carbon dioxide, tota l [Moles/volume] in Central venous blood [facility] Creatinine [Mass/vol ume] in Serum or Plasma [facility] Electrocardiographic procedure [facility] Erythrocyte mean cor puscular volume determination [facility] Glucose [Mass/volume ] in Serum or Plasma [facility] Hematocrit [Volume F raction] of Blood [facility] Hemoglobin [Mass/vol ume] in Blood [facility] Leukocytes [#/volume] in Blood [facility] Mean corpuscular hem oglobin concentration determination [facility] Mean corpuscular hem oglobin determination [facility] Measurement of renal function [facility] Measurement of substance [facility] Neutrophil count [facility] Neutrophil percent differential count [facility] Platelets [#/volume] in Blood [facility] Potassium measurement [facility] Red blood cell count [facility] Red cell distributio n width determination [facility] Serum chloride measurement [facility] Sodium measurement [facility] Total protein measurement [facility] Urea nitrogen [Mass/ volume] in Serum or Plasma [facility] Immunizations Immunization Date Immunization Notes Care Provider Fa cility 03-15-2008 hepatitis B vaccine, adult dosage [address] [employer] Work Phone: 03-15-2008 hepatitis B vaccine, unspecified formulation [address] [employer] Phone: 02-13-2008 hepatitis B vaccine, adult dosage [address] [employer] Phone: 02-13-2008 hepatitis B vaccine, unspecified formulation [address] [employer] Phone: 02-13-2008 tetanus toxoid, redu marco diphtheria toxoid, and acellular pertussis vaccine, adsorbed [address] [employer] Phone: 03-16-2002 measles, mumps and r ubella virus vaccine [address] [employer] Phone: 08-21-1996 varicella virus vaccine [address] [employer] Phone: 02-23-1995 diphtheria, tetanus toxoids and acellular pertussis vaccine [address] [employer] Phone: 02-23-1995 poliovirus vaccine, inactivated [address] [employer] Phone: 01-02-1992 diphtheria, tetanus toxoids and acellular pertussis vaccine [address] [employer] Phone: 01-02-1992 poliovirus vaccine, inactivated [address] [employer] Phone: 10-06-1991 Hib, unspecified Hardik [address] [place] [address] Work Phone: 10-06-1991 measles, mumps and r ubella virus vaccine [address] [facility] Work Phone: 01-10-1991 diphtheria, tetanus toxoids and acellular pertussis vaccine [facility] Work Phone: 01-10-1991 Hib, unspecified Hardik [facility] Work Phone: 1990 diphtheria, tetanus toxoids and acellular pertussis vaccine Hardik 1 [facility] Work Phone: 1990 Hib, unspecified [facility] Work Phone: 1990 poliovirus vaccine, inactivated Hardik 1 [facility] Work Phone: 1990 Hib, unspecified [facility] 1 [facility] Work Phone: 1990 diphtheria, tetanus toxoids and acellular pertussis vaccine Hardik Moore [facility] Work Phone: 1990 poliovirus vaccine, inactivated Hardik Moore [facility] Work Phone: Payers Date Payer Category Payer Self-pay 2017 Medicaid [id number] 2016 Medicaid 2015 Medicaid [id number] 2015 Medicaid MEDICAID [facility] DEPT OF JOB xxxxxxxxxxxx 2015-Present [phone] [address] [place] [address] xxxxxxxxxxxx [id number] 1990 Unknown [id number] 1990 Unknown [id number] 1990 Unknown [id number] 1990 Unknown [id number] 1990 Unknown [id number] Unknown [id number] Unknown [id number] Social History Date Type Detail Facility Tobacco smoking status NHIS Unknown if ever smoked [facility] Start: 1990 Sex Assigned At Not on file [facility] Start: 03-26-2020 End: 01-15-2025 Tobacco smoking status NHIS Never smoker [employer] History of tobacco use Cigarette Smoker [employer] Phone: Start: 03-26-2020 End: 06-24-2022 Tobacco use and exposure Never used [facility] [place] Start: 03-26-2020 End: 02-26-2023 Alcohol intake Current non-drinker of alcohol (finding) [employer] Phone: Start: 11-04-2011 End: 02-11-2022 Tobacco Comment Mom smokes outside. 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 [employer] Phone: Start: 09-12-2022 End: 09-22-2022 Exposure to SARS-CoV-2 (event) Not sure [employer] Start: 04-01-2023 Tobacco smoking status NHIS Unknown if ever smoked [facility] Start: 1990 Sex Assigned At Female W [facility] NEGATED: Highlighted rowStart: NINF History of tobacco use Passive smoker [employer] Work Phone: Evaluation note Note Date & Type Note Facility Evaluation note Diagnosis Influenza B Influenza with other respiratory manifestations documented in this encounter [employer] Phone: Evaluation note Note Date & Type Note Facility Evaluation note Diagnosis Acquired foot deformity, right documented in this encounter [employer] Phone: Evaluation note Note Date & Type Note Facility Evaluation note Diagnosis Right hip pain Pain in joint, pelvic region and thigh documented in this encounter [employer] Phone: Evaluation note Note Date & Type Note Facility Evaluation note Diagnosis Bruising Contusion of unspecified site documented in this encounter [employer] Evaluation note Note Date & Type Note Facility Evaluation note Diagnosis Onset Date Pre-syncope acute [facility] Work Phone: Evaluation note Note Date & Type Note Facility Evaluation note Diagnosis Onset Date Heart murmur acute Insomnia acute Cerebral palsy chronic Epilepsy chronic 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 History of vitamin D deficiency resolved Pre-syncope resolved [facility] Work Phone: Evaluation note Note Date & Type Note Facility Evaluation note No assessment information availa ble [facility] Work Phone: Reason for referral (narrative) Note Date & Type Note Facility Reason for referral (narrative) No reason for referral information available [facility] Work Phone: Summary Purpose Family History No Family History Records FoundNo Family History Records FoundNo Family History Records FoundNo Family History Records FoundNo Family History Records FoundNo Family History Records FoundNo Family History Records FoundNo Family History Records Found Advance Directives Documents on File Type Date Recorded 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 Services 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 Expl anation ACP-Advance Directive ACP-Power of Chart Picker Documents on File Type Date Recorded 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 Services Manager Expl anation Advance Directives and Living Will Documents on File Type Date Recorded 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 Services Manager Expl anation Advance Directives and Living Will Power of Chart Picker Chief Complaint and Reason for Visit Chief Complaint EORDER 6MO Reason for Visit Pre-syncope Chief Complaint EORDER 6MO Syncope and collapse Reason for Visit Heart murmur Insomnia Cerebral palsy Epilepsy Intellectual disability History of vitamin D deficiency Pre-syncope Chief Complaint Admit Date EORDFebruary 05, 2025 2: 03pm FOLLOW UP February 05, 2025 2: 24pm Additional Source Comments INFORMATION SOURCE (unrecogn ized section and content) DATE CREATED AUTHOR 12/13/2017 [facility] DATE CREATED AUTHOR AUTHOR'S ORGANIZ ATION 04/08/2018 [facility] DATE CREATED AUTHOR AUTHOR'S ORGANIZ ATION 07/12/2019 [facility] DATE CREATED AUTHOR AUTHOR'S ORGANIZ ATION 03/29/2020 [facility] DATE CREATED AUTHOR AUTHOR'S ORGANIZ ATION 05/11/2021 [facility] DATE CREATED AUTHOR AUTHOR'S ORGANIZ ATION 09/26/2022 [facility] DATE CREATED AUTHOR AUTHOR'S ORGANIZ ATION 11/03/2022 [facility] DATE CREATED AUTHOR AUTHOR'S ORGANIZ ATION 02/04/2025 [facility] Care Teams (unrecognized sec tion and content) Tour Consultant Relationship Specialty Start Date End Date Olya Johnson MD [address] [place] [address] PCP - General Family Medicine 07/15/17 Tour Consultant Relationship Specialty Start Date End Date Olya Johnson MD [address] [place] [address] PCP - General Family Medicine 07/15/17 Tour Consultant Relationship Specialty Start Date End Date Olya Johnson MD [address] [place] [address] PCP - General Family Medicine 07/15/17 Team Status: Active Member Role Status Dates Dr. Olya Johnson Primary Care Provider Active Team Status: Inactive Member Role Status Dates Dr. Brodie Ralph MD Attending Provider Active Dr. Olya Johnson Primary Care Provider, Referring Provid er Active Team Status: Inactive Member Role Status Dates Dr. Olya Johnson Primary Care Provider Active Dr. Brodie Ralph MD Attending Provider, Referring Provider Active Team Status: Active Member Role Status Dates Dr. Olya Johnson Primary Care Provider Active Dr. Matthias Gil MD Attending Provider Active Team Status: Active Member Role/Relationship Status Dates Dr. Olya Johnson Primary Care Provider Active Team Status: Active Member Role/Relationship Status Dates Dr. Olya Johnson Primary Care Provider Active Star t: February 05, 2025 Dr. Brodie Ralph MD Attending Provider Active Start: February 05, 2025 Dr. Brodie Ralph MD Referring Provider Active Start: February 05, 2025 Team Status: Inactive Member Role/Relationship Status Dates Dr. Olya Johnson Primary Care Provider Active Star t: February 05, 2025 End: February 05, 2025 Dr. Olya Johnson Referring Provider Active Start: February 05, 2025 End: February 05, 2025 Dr. Brodie Ralph MD Attending Provider Active Start: February 05, 2025 End: February 05, 2025 Goals (unrecognized section and content) Goals may be documented in a n alternate sectionGoals may be documented in an alternate sectionGoals may be documented in an alternate section FOR RECORDS PERTAINING TO PATIENTS WHO ARE OR HAVE BEEN ENROLLED IN A CHEMICAL DEPENDENCY/SUBSTANCEABUSE PROGRAM, SOME INFORMATION MAY BE OMITTED. This clinical summary was aggregated from multiple sources. Caution should be exercised in using it in the provision of clinical care. This summary normalizes information from multiple sources, and as a consequence, information in this document may materially change the coding, format and clinical context of patient data. In addition, data may be omitted in some cases. CLINICAL DECISIONS SHOULD BE BASED ON THE PRIMARY CLINICAL RECORDS. [facility] [employer] provides no warranty or guarantee of the accuracy or completeness of information in this document.
== END | disposition home or self-care (01) ==
LOC: MTLAB 14:06
PROVIDERS: PCP Family Medicine; Referring Provider Psychiatry & Neurology Neurology; Visit Provider Psychiatry & Neurology Neurology
DX: G40.802 Other epilepsy, not intractable, without status epilepticus (principal)
CPT/HCPCS: 36415; 80053; 82542; 85025